=== PATIENT | female | born 1985 | race Caucasian/White ===

== ENCOUNTER 2016-09-02 10:23 | Emergency (ER) | payer SELFPAY | END 2016-09-02 12:02 | disposition left against medical advice (07) | LOC: D.ER 10:23 | DX: K13.70 Unspecified lesions of oral mucosa (principal) ==

== ENCOUNTER 2016-09-11 17:54 | Emergency (ER) | payer SELFPAY ==
[2016-09-11 18:51] LABS: BASOPHILS 0.4 % (0-2); HEMATOCRIT 39.7 % (36.0-48.0); HEMOGLOBIN 13.3 g/dL (12-16); IMMATURE GRANULOCYTES 1.1 % (0-5); LYMPHOCYTES 33.5 % (15-50); MCH 32.4 pg (26.0-34.0); MCHC 33.5 g/dL (31.0-37.0); MCV 96.6 fL (80.0-100.0); MEAN PLATELET VOLUME 9.5 fL (7.4-10.4); MONOCYTES 6.2 % (2-11); NEUTROPHILS 57.8 % (40-80); PLATELET COUNT 313 10x3/uL (130-400); RBC 4.11 10x6/uL (4.00-5.40); RDW 12.1 % (11.5-14.5); WBC 12.5 10x3/uL (4.8-10.8)
[2016-09-11 20:28] LABS: APPEARANCE CLEAR (CLEAR); BILIRUBIN NEGATIVE (NEGATIVE); COLOR STRAW (YELLOW); GLUCOSE NEGATIVE (NEGATIVE); KETONE NEGATIVE (NEGATIVE); LEUKOCYTE ESTERASE NEGATIVE (NEGATIVE); NITRITE NEGATIVE (NEGATIVE); PROTEIN NEGATIVE (NEGATIVE); UROBILINOGEN NORMAL (NORMAL)
[2016-09-11 20:30] LABS: RED CELLS - URINE 0-5 /hpf (0-5); WHITE CELLS - URINE NSEEN /hpf (0-5)
[2016-09-11 20:31] LABS: BACTERIA FEW /hpf (NONE SEEN); EPITHELIAL CELLS 0-5 /hpf (0-5)
== END 2016-09-11 20:21 | disposition home or self-care (01) ==
LOC: D.ER 17:54
PROVIDERS: Emergency Medicine
DX: K02.9 Dental caries, unspecified (principal); H66.91 Otitis media, unspecified, right ear; J01.00 Acute maxillary sinusitis, unspecified; F31.89 Other bipolar disorder; F20.9 Schizophrenia, unspecified; F41.0 Panic disorder [episodic paroxysmal anxiety]; F43.10 Post-traumatic stress disorder, unspecified